=== PATIENT | male | born 1945 | race Caucasian/White ===

== ENCOUNTER 2016-08-26 09:46 | Emergency (ER) | payer MEDICARE, OTHER ==
[2016-08-26] MEDS ORDERED: Zofran 4 MG/2 ML VIAL IV ONE (10:03)
[2016-08-26] MEDS ORDERED: DILAUDID 1 MG/ML INJECTION IV ONE (10:03)
[2016-08-26] MEDS ORDERED: Pepcid 20 MG VIAL IV ONE ×2 (10:03→10:19)
--- NOTE | 2016-08-26 10:06 | ERPHSYRPT ---
- History of Present Illness Time Seen by Provider: 08/26/16 09:54 Historian: patient, family Patient Subjective Stated Complaint: PT REPORTS SEVERE ABD PAIN RIGHT LOWER QUAD RADIATING TO GROIN BEGINNING 2 DAYS AGO-STATES PAIN GOT BETTER YESTERDAY ET THEN BECAME SEVERE AGAIN YVETTE 0400 THIS AM-REPORTS NAUSEA DENIES V/D-DENIES FEVER-DENIES DIFFICUTLY WITH URINATION-LAST BM 2 DAYS AGO Triage Nursing Assessment: PT PALE WARM ET DRY-A & O-ABD TENDER TO PALP-DENIES REBOUND TENDERNESS-BOWEL SOUNDS PRESENT-RESP NONLABORED Physician History: CC: abd pain hX: 70 y/o patient of Dr Mendez with 2-3 day hx of abd pain. It is rather severe and radiates to the groin. He saw the [facility] and was given ultram without relief. Plain xray neg. He is scheduled for CT later today. No fever or chills. Normal BM and normal urination. No chest pain. He had prior EGD recently which showed duodenitis. He had prior colonoscopy which was ok. Pain is in right abd and rather severe. Allergies/Adverse Reactions: iodine Allergy (Severe, Verified 08/26/16 10:17) "ALMOST KILLED ME" codeine Allergy (Mild, Verified 08/26/16 09:55) tetanus toxoid, adsorbed Allergy (Mild, Verified 08/26/16 09:55) Home Medications: Zolpidem Tartrate [Ambien] 1 tab PO HS 08/07/13 [History] Clopidogrel Bisulfate 75 mg [PLAVIX 75 MG Tablet] 75 mg PO HS 06/16/16 [ History] Omeprazole 20 MG [Prilosec 20 mg] 40 mg PO HS 06/16/16 [History] Tramadol HCl/Acetaminophen [Ultracet Tablet] 1 each PO Q6-8HPRN PRN 06/16/16 [ History] Hx Tetanus, Diphtheria Vaccination/Date Given: No Hx Influenza Vaccination/Date Given: Yes Hx Pneumococcal Vaccination/Date Given: Yes Immunizations Up to Date: Yes - Review of Systems Constitutional: Malaise, Weakness, No Fever, No Chills Eyes: No Symptoms Ears, Nose, & Throat: No Symptoms Respiratory: No Cough, No Dyspnea Cardiac: No Chest Pain Abdominal/Gastrointestinal: Abdominal Pain, Nausea, Vomiting (1st night), No Diarrhea, No Constipation Genitourinary Symptoms: No Dysuria, No Hematuria, No Flank Pain Skin: No Rash Neurological: No Headache All Other Systems: Reviewed and Negative - Past Medical History Pertinent Past Medical History: Yes Neurological History: No Pertinent History ENT History: No Pertinent History Cardiac History: Coronary Artery Disease (s/p stenting), Hypertension Respiratory History: COPD, Pneumonia Endocrine Medical History: No Pertinent History Musculoskeletal History: No Pertinent History GI Medical History: GERD History: No Pertinent History Psycho-Social History: No Pertinent History Male Reproductive Disorders: Prostate Problems - Past Surgical History Past Surgical History: Yes Neuro Surgical History: No Pertinent History Cardiac: Cardiac Stent Respiratory: No Pertinent History Gastrointestinal: Appendectomy Musculoskeletal: Orthopedic Surgery Other Surgical History: l shoulder - tonsils .jeanie ankles. - Social History Smoking Status: Never smoker Exposure to second hand smoke: No Drug Use: none Patient Lives Alone: No - Nursing Vital Signs Nursing Vital Signs: Initial Vital Signs Temperature 98.2 F Temperature Source Oral Pulse Rate 64 Respiratory Rate 20 Blood Pressure [] 163/88 Pain Intensity 4 - Physical Exam General Appearance: alert Eye Exam: PERRL/EOMI Ears, Nose, Throat Exam: normal ENT inspection, moist mucous membranes Neck Exam: normal inspection, non-tender, supple Respiratory Exam: normal breath sounds, lungs clear Cardiovascular Exam: regular rate/rhythm Gastrointestinal/Abdomen Exam: soft, tenderness (RLQ tender with some guarding) , No mass, No guarding Male Genitalia Exam: normal genitalia, No hernia, No testicular tenderness Back Exam: normal inspection Extremity Exam: normal inspection, normal range of motion Neurologic Exam: alert, oriented x 3, cooperative, sensation nml, No motor deficits Skin Exam: warm, dry, No rash SpO2 Interpretation: normal SpO2: 99 Oxygen Delivery: Room Air - Course Nursing assessment & vital signs reviewed: Yes EKG Interpreted by Me: RATE (61), Sinus Rhythm, NORMAL AXIS, NORMAL INTERVALS ( QTc 421), NORMAL QRS, NORMAL ST-T - CT Exams abd/pelvis CT Interpretation: Tele-radiologist Report (urine bladder micro calculi with right hydronephrosis, enlarged prostate) Ordered Tests: Active Orders 24 hr Category Date Time Status Clean Catch Urine Specimen STAT Care 08/26/16 10:03 Active EKG-ER Only STAT Care 08/26/16 10:03 Active IV Insertion STAT Care 08/26/16 10:03 Active NPO (ED) STAT Care 08/26/16 10:03 Active ABDOMEN AND PELVIS W/0 CONTRAS [CT] Stat Exams 08/26/16 10:06 Completed CBC W DIFF Stat Lab 08/26/16 10:00 Completed CMP Stat Lab 08/26/16 10:00 Completed LIPASE Stat Lab 08/26/16 10:00 Completed Lactic Acid Urgent Lab 08/26/16 10:15 Completed UA W/ MICROSCOPIC Stat Lab 08/26/16 10:50 Completed Medication Summary Generic Name Dose Route Start Last Admin Trade Name Freq PRN Reason Stop Dose Admin Sodium Chloride 1,000 mls @ 100 mls/hr 08/26/16 10:15 08/26/16 10:29 Sodium Chloride 0.9% 1000 Ml IV 09/25/16 10:14 100 mls/hr .Q10H JUAN Administration Discontinued Medications Generic Name Dose Route Start Last Admin Trade Name Freq PRN Reason Stop Dose Admin Famotidine 20 mg 08/26/16 10:03 08/26/16 10:29 Pepcid 20 Mg Vial IV 08/26/16 10:04 20 mg STAT ONE Administration Famotidine Confirm 08/26/16 10:19 Pepcid 20 Mg Vial Administered 08/26/16 10:20 Dose 20 mg IV .STK-MED ONE Hydromorphone HCl 0.5 mg 08/26/16 10:03 08/26/16 10:30 Dilaudid 1 Mg/Ml Injection IV 08/26/16 10:04 0.5 mg STAT ONE Administration Hydromorphone HCl Confirm 08/26/16 10:19 Dilaudid 1 Mg/Ml Injection Administered 08/26/16 10:20 Dose 1 mg .ROUTE .STK-MED ONE Sodium Chloride Confirm 08/26/16 10:19 Sodium Chloride 0.9% 1000 Ml Administered 08/26/16 10:20 Dose 1,000 mls @ ud .ROUTE .STK-MED ONE Ondansetron HCl 4 mg 08/26/16 10:03 08/26/16 10:29 Zofran 4 Mg/2 Ml Vial IV 08/26/16 10:04 4 mg STAT ONE Administration Ondansetron HCl Confirm 08/26/16 10:19 Zofran 4 Mg/2 Ml Vial Administered 08/26/16 10:20 Dose 4 mg .ROUTE .STK-MED ONE Lab/Rad Data: Laboratory Result Diagrams 08/26/16 10:00 08/26/16 10:00 Laboratory Results 08/26/16 08/26/16 08/26/16 Range/Units 10:50 10:15 10:00 WBC (4.0-10.5) K/mm3 RBC (4.1-5.6) M/mm3 Hgb (12.5-18.0) gm/dl Hct (42-50) % MCV (78-100) fl MCH (26-32) pg MCHC (32-36) g/dl RDW (11.5-14.0) % Plt Count (150-450) K/mm3 MPV (6-9.5) fl Gran % (36.0-66.0) % Lymphocytes % (24.0-44.0) % Monocytes % (0.0-12.0) % Eosinophils % (0.00-5.0) % Basophils % (0.0-0.4) % Basophils # (0-0.4) Sodium 142 (136-145) mEq/L Potassium 3.6 (3.5-5.1) mEq/L Chloride 102 (98-107) mEq/L Carbon Dioxide 26.5 (21-32) mEq/L Anion Gap 16.6 H (5-15) MEQ/L BUN 16 (9-20) mg/dL Creatinine 1.47 H (0.55-1.30) mg/dl Estimated GFR 50 ML/MIN Glucose 110 (70-110) MG/DL Lactic Acid 1.8 (0.4-2.0) Calcium 9.6 (8.5-10.1) mg/dL Total Bilirubin 1.3 H (0.2-1.0) mg/dL AST 17 (15-37) U/L ALT 13 (12-78) U/L Alkaline Phosphatase 103 (46-116) U/L Serum Total Protein 8.2 (6.4-8.2) gm/dL Albumin 4.2 (3.4-5.0) g/dL Lipase 102 (73-393) U/L Ur Collection Type VOID Urine Color YELLOW (YELLOW) Urine Appearance CLEAR (CLEAR) Urine pH 6.5 (5-6) Ur Specific [place] 1.015 (1.005-1.025) Urine Protein 30 (Negative) Urine Glucose (UA) NEGATIVE (NEGATIVE) mg/dL Urine Ketones >=160 (NEGATIVE) Urine Nitrite NEGATIVE (NEGATIVE) Urine Bilirubin NEGATIVE (NEGATIVE) Urine Urobilinogen 0.2 (0-1) mg/dL Urine WBC (Auto) NEGATIVE (NEGATIVE) Urine RBC (Auto) LARGE (0-5) Jaron/ul Urine Microscopic RBC 5-10 (0-2) /HPF Urine Microscopic WBC 0-2 (0-5) /HPF Ur Epithelial Cells FEW (FEW) /HPF Urine Bacteria FEW (NEGATIVE) /HPF Urine Mucus SLIGHT (NEGATIVE) /HPF Specimen Received 08/26/16 1050 08/26/16 Range/Units 10:00 WBC 9.9 (4.0-10.5) K/mm3 RBC 5.22 (4.1-5.6) M/mm3 Hgb 15.2 (12.5-18.0) gm/dl Hct 45.6 (42-50) % MCV 87.4 (78-100) fl MCH 29.1 (26-32) pg MCHC 33.3 (32-36) g/dl RDW 13.3 (11.5-14.0) % Plt Count 251 (150-450) K/mm3 MPV 10.6 H (6-9.5) fl Gran % 76.4 H (36.0-66.0) % Lymphocytes % 16.6 L (24.0-44.0) % Monocytes % 6.7 (0.0-12.0) % Eosinophils % 0.2 (0.00-5.0) % Basophils % 0.1 (0.0-0.4) % Basophils # 0.01 (0-0.4) Sodium (136-145) mEq/L Potassium (3.5-5.1) mEq/L Chloride (98-107) mEq/L Carbon Dioxide (21-32) mEq/L Anion Gap (5-15) MEQ/L BUN (9-20) mg/dL Creatinine (0.55-1.30) mg/dl Estimated GFR ML/MIN Glucose (70-110) MG/DL Lactic Acid (0.4-2.0) Calcium (8.5-10.1) mg/dL Total Bilirubin (0.2-1.0) mg/dL AST (15-37) U/L ALT (12-78) U/L Alkaline Phosphatase (46-116) U/L Serum Total Protein (6.4-8.2) gm/dL Albumin (3.4-5.0) g/dL Lipase (73-393) U/L Ur Collection Type Urine Color (YELLOW) Urine Appearance (CLEAR) Urine pH (5-6) Ur Specific [place] (1.005-1.025) Urine Protein (Negative) Urine Glucose (UA) (NEGATIVE) mg/dL Urine Ketones (NEGATIVE) Urine Nitrite (NEGATIVE) Urine Bilirubin (NEGATIVE) Urine Urobilinogen (0-1) mg/dL Urine WBC (Auto) (NEGATIVE) Urine RBC (Auto) (0-5) Jaron/ul Urine Microscopic RBC (0-2) /HPF Urine Microscopic WBC (0-5) /HPF Ur Epithelial Cells (FEW) /HPF Urine Bacteria (NEGATIVE) /HPF Urine Mucus (NEGATIVE) /HPF Specimen Received - Progress Progress Note: 08/26/16 11:[address] appears to show renal colic signs. Will release with instr. Counseled pt/family regarding: lab results, diagnosis, need for follow-up, rad results - Departure Time of Disposition: 11:26 Departure Disposition: Home Clinical Impression: Renal colic on right side Condition: Stable Critical Care Time: No Referrals: MALLY MENDEZ [Primary Care Provider] - Instructions: Abdominal Pain-Adult, Kidney Stones Additional Instructions: Return for fever, recurrent vomiting, or uncontrolled pain. See Dr Mendez at 1:30 Monday. No driving today or while taking norco. Prescriptions: Hydrocodone Bit/Acetaminophen [[place] 5-325 Tablet] 1 each PO Q6H PRN PRN #20 tablet PRN Reason: Pain Ondansetron [Zofran Odt] 4 mg PO Q6HPRN PRN #10 tab.rapdis PRN Reason: Nausea/Vomiting
[2016-08-26] MEDS ORDERED: Sodium Chloride 0.9% 1000 ML 1,000 ML IV SCH (10:15)
[2016-08-26] MEDS ORDERED: DILAUDID 1 MG/ML INJECTION ONE (10:19)
[2016-08-26] MEDS ORDERED: Zofran 4 MG/2 ML VIAL ONE (10:19)
[2016-08-26] MEDS ORDERED: Sodium Chloride 0.9% 1000 ML 1,000 ML ONE (10:19)
[2016-08-26 10:20] LABS: BASOPHIL % 0.1 % (0.0-0.4); Eosinophil % 0.2 % (0.00-5.0); Granulocytes % 76.4 % (36.0-66.0); Lymphocytes % 16.6 % (24.0-44.0); Mean Cell Volume 87.4 fl (78-100); Mean Corpuscular Hemoglobin 29.1 pg (26-32); Mean Platelet Volume 10.6 fl (6-9.5); Monocytes % 6.7 % (0.0-12.0); Platelet Count 251 K/mm3 (150-450); Red Blood Count 5.22 M/mm3 (4.1-5.6); Red Cell Distribution Width 13.3 % (11.5-14.0); White Blood Count 9.9 K/mm3 (4.0-10.5)
[2016-08-26 10:55] LABS: ALBUMIN 4.2 g/dL (3.4-5.0); ANION GAP 16.6 MEQ/L (5-15); BILIRUBIN,TOTAL 1.3 mg/dL (0.2-1.0); Carbon Dioxide 26.5 mEq/L (21-32); Potassium 3.6 mEq/L (3.5-5.1); Total Protein 8.2 gm/dL (6.4-8.2)
--- NOTE | 2016-08-26 11:12 | XRAY ---
Indication: Lower abdominal pain radiating into testicles. Multiple contiguous axial images obtained through the abdomen and pelvis without contrast as ordered. Comparison: November 12, 2005 Lung bases are clear. Heart is not enlarged. Noncontrasted stomach and bowel loops appear nonobstructed. Previous reported appendectomy. No free fluid/air. Again enlarged prostate gland impresses on the base of the bladder. There are now 2 tiny urinary bladder calculi, larger measuring 3 mm. There is also mild right-sided hydronephrosis with minimal right ureteral dilatation suggestive of recent obstructive uropathy. Remaining liver, gallbladder, pancreas, spleen, adrenal glands, left kidney, and left ureter are unremarkable for noncontrast exam. There remains mild aortoiliac calcifications without AAA. Osseous structures intact again with mild multilevel degenerative spondylosis. Impression: 1. 2 new urinary bladder micro-calculi. Mild right sided hydronephrosis and minimal hydroureter suggestive of recent passage of calculus. 2. Stable enlarged prostate gland. CT DI 24.77
[2016-08-26 11:24] LABS: Collection Type VOID
[2016-08-26 11:25] LABS: Bacteria FEW /HPF (NEGATIVE); COMPLETE URINE MICROSCOPIC? YES; Epithelial Cells FEW /HPF (FEW); Mucus SLIGHT /HPF (NEGATIVE); Ph 6.5 (5-6); WBC 0-2 /HPF (0-5)
[2016-08-26 11:46] VITALS: BP 162/85; PULSE 62; O2SAT 97
== END 2016-08-26 11:45 | disposition home or self-care (01) ==
LOC: ED 09:46
DX: N23 Unspecified renal colic (principal); R10.31 Right lower quadrant pain; R11.2 Nausea with vomiting, unspecified; R53.1 Weakness; I25.10 Atherosclerotic heart disease of native coronary artery without angina pectoris; Z98.61 Coronary angioplasty status; I10 Essential (primary) hypertension
CPT/HCPCS: 36000; 36415; 74176; 80053; 81000; 83605; 83690; 85025; 93005; 96360; 96374; 96375; 99283; J1170; J2405

== ENCOUNTER 2017-09-19 14:20 | Observation (INO) | payer MEDICARE, OTHER ==
[2017-09-19] MEDS ORDERED: MORPHINE SULFATE 2 MG INJ ONE (14:44)
[2017-09-19] MEDS: Zofran 4 MG/2 ML VIAL IV PRN ×2 (14:45→23:15)
[2017-09-19] MEDS ORDERED: Zofran 4 MG/2 ML VIAL ONE (14:47)
[2017-09-19] MEDS ORDERED: MORPHINE SULFATE 2 MG INJ IV PRN (14:50)
[2017-09-19 15:10] LABS: BASOPHIL % 0.1 % (0.0-0.4); Basophil (Absolute #) 0.02 (0-0.4); Eosinophil % 0.4 % (0.00-5.0); Eosinophil (Absolute #) 0.05 (0-0.5); Granulocyte Absolute (ANC) 11.78 (1.4-6.9); Granulocytes % 83.5 % (36.0-66.0); Hematocrit 43.6 % (42-50); Hemoglobin 14.3 gm/dl (12.5-18.0); Lymphocyte (Absolute #) 1.48 (1.0-4.6); Lymphocytes % 10.5 % (24.0-44.0); Mean Cell Volume 88.6 fl (78-100); Mean Corpuscular Hemoglobin 29.1 pg (26-32); Mean Corpuscular Hgb Concent. 32.8 g/dl (32-36); Mean Platelet Volume 10.3 fl (6-9.5); Monocyte (Absolute #) 0.78 (0.0-1.3); Monocytes % 5.5 % (0.0-12.0); Platelet Count 244 K/mm3 (150-450); Red Blood Count 4.92 M/mm3 (4.1-5.6); Red Cell Distribution Width 12.9 % (11.5-14.0); White Blood Count 14.1 K/mm3 (4.0-10.5)
[2017-09-19 15:33] LABS: ALBUMIN 4.1 g/dL (3.4-5.0); ANION GAP 9.4 MEQ/L (5-15); BILIRUBIN,TOTAL 0.7 mg/dL (0.2-1.0); Calcium 9.4 mg/dL (8.5-10.1); Carbon Dioxide 28.7 mEq/L (21-32); Creatinine 1 1.41 mg/dl (0.55-1.30); Potassium 4.4 mEq/L (3.5-5.1); Total Protein 7.8 gm/dL (6.4-8.2)
[2017-09-19] MEDS: D5W/0.45NS W/ 20mEq KCl 1000 ML 1,000 ML IV SCH ×2 (15:46→23:07)
--- NOTE | 2017-09-19 16:22 | XRAY ---
Indication: Groin pain. Dysuria. History stones. Multiple contiguous axial images obtained through the abdomen and pelvis without contrast as ordered. Comparison: August 26, 2016. Lung bases demonstrates minimal right base dependent atelectasis. Remaining lung bases clear. Heart is not enlarged. New 3-4 mm right UVJ ureteral calculus. The more proximal right ureter is mildly distended up to 5-6 mm with stranding with mild hydronephrosis. Moderate perinephric stranding with small fluid suggests pyelosinus reflux. Findings consistent with high-grade obstructive uropathy. Stable enlarged prostate gland again impresses on the base of the urinary bladder. Noncontrasted stomach and bowel loops appear nonobstructed. Previous reported appendectomy. Again a few calcified splenic granulomas. Remaining liver, gallbladder, pancreas, spleen, adrenal glands, left kidney, left ureter, and bladder appear unremarkable for noncontrast exam. Stable mild aortoiliac calcifications without AAA. Osseous structures intact again with mild multilevel degenerative spondylosis. Stable small fatty right inguinal hernia. Impression: 1. New 3-4 mm right UVJ calculus producing high-grade obstructive uropathy as detailed. 2. Stable enlarged prostate gland and small fatty right inguinal hernia. CTDI 21.97
[2017-09-19 16:49] LABS: Appearance CLEAR (CLEAR); Glucose NEGATIVE (NEGATIVE); Leukocyte Esterase NEGATIVE (NEGATIVE); Nitrite NEGATIVE (NEGATIVE); Protein,Urine Dip TRACE (Negative); Specific Gravity 1.015 (1.005-1.025)
[2017-09-19 16:50] LABS: Bacteria RARE /HPF (NEGATIVE); Bilirubin NEGATIVE (NEGATIVE); Blood 50 Ery/ul (0-5); Epithelial Cells RARE /HPF (FEW); Ketones MODERATE (NEGATIVE); Urobilinogen NORMAL mg/dL (0-1)
[2017-09-19] MEDS: Coreg 3.125 MG PO SCH (17:09)
[2017-09-19] MEDS ORDERED: Coreg 3.125 MG ONE (17:14)
[2017-09-19] MEDS: MORPHINE SULFATE 4 MG INJ IV PRN ×2 (17:19→23:15)
[2017-09-19] MEDS ORDERED: PLAVIX 75 MG Tablet PO SCH (22:00)
[2017-09-19] MEDS ORDERED: Ambien 10 MG PO SCH (22:00)
[2017-09-20 07:12] VITALS: BP 132/77; PULSE 58; O2SAT 98
[2017-09-20] MEDS: D5W/0.45NS W/ 20mEq KCl 1000 ML 1,000 ML IV SCH (08:04)
[2017-09-20] MEDS: Coreg 3.125 MG PO SCH (09:31)
--- NOTE | 2017-09-20 09:37 | PCM.DCORD ---
- Discharge Discharge Date: 09/20/17 Disposition: Home, Self-Care Condition: Stable Prescriptions: New Hydrocodone/APAP 10/325 mg [[place] 10/325 MG Tablet] 1 tab PO Q4H PRN PRN #20 tablet MDD 6 PRN Reason: Pain Continue Zolpidem Tartrate [Ambien] 1 tab PO HS Clopidogrel Bisulfate 75 mg [PLAVIX 75 MG Tablet] 75 mg PO HS Carvedilol 3.125 mg PO BID PANTOPRAZOLE 40 mg Tablet [Protonix 40MG Tablet] 40 mg PO QAM Follow up with: MALLY HOOK [Primary Care Provider] - 1 Week
[2017-09-20] MEDS ORDERED: Protonix 40MG Tablet PO SCH (10:00)
--- NOTE | 2017-09-22 08:36 | SSS ---
DISCHARGE DIAGNOSES: 1) NEPHROLITHIASIS. 2) HYDRONEPHROSIS. 3) VOMITING. HISTORY OF PRESENT ILLNESS: The patient is a 71 year-old white male patient presented to my office with complaints of left lower quadrant abdominal pain. He reports he previously had kidney stones 40 years ago and three or four years ago, this is a similar type of pain as he had previously. He was seen in the office and admitted to the hospital for IV fluid hydration and pain control and further evaluation. PAST MEDICAL/SURGICAL HISTORY: Otherwise significant for hypertension, coronary artery disease and gastroesophageal reflux disease. HOME MEDICATIONS: Includes carvedilol 3.125 mg b.i.d., Plavix 75 mg daily, pantoprazole 40 mg daily and 10 mg at night for sleep. ALLERGIES: IODINE, CODEINE, TETANUS. PHYSICAL EXAMINATION: Revealed a well-nourished, well-developed 71 year-old white male in moderate distress due to his pelvic pain at the time of my initial evaluation. VITAL SIGNS: On admission showed temperature 98.1F, pulse 53, respiratory rate 20, blood pressure was noted to be 223/98. O2 saturations 99% on room air. HEENT: Normocephalic, atraumatic. Pupils equal round reactive to light. Extraocular movements intact. Oropharynx is somewhat dry. NECK: Supple without lymphadenopathy, thyromegaly or JVD. CHEST: Clear to auscultation with good air movement bilaterally. HEART: Regular rate and rhythm without murmurs, rubs or gallops. ABDOMEN: Soft, mildly tender in the suprapubic area. There was minimal CVA tenderness to percussion. No palpable masses were felt. EXTREMITIES: Without clubbing, cyanosis or edema. NEUROLOGIC: The patient is alert and oriented x3. LAB DATA AND TESTS: Showed glucose nonfasting 119, BUN 16, creatinine 1.41. Electrolytes and liver enzymes were normal. UA showed 5-10 red blood cells per high field. Specific gravity 1.015 and was otherwise normal. His white blood cell count was 14.100. His hemoglobin was 14.3, PLT count 224,000. CT scan showed new 3 to 4 mm right UVJ calculus with producing high grade obstructive uropathy. HOSPITAL COURSE: The patient is admitted to the [facility], given IV morphine and IV fluids. His blood pressure came down nicely after his pain was resolved. Overnight the patient reports the pain has mostly resolved. He is able to drink fluids and seems comfortable presently in bed. He is felt to be ready for discharge home at this time. He is discharged home with [place] 10/325 mg every four hours PRN for pain and continue his home medications. He is to push fluid and return to my office in one week for follow up.
== END 2017-09-20 11:00 | disposition home or self-care (01) ==
LOC: MED SURG 14:20
PROVIDERS: ADMIT Family Medicine; ATTEND Family Medicine
DX: N20.0 Calculus of kidney (principal); N13.30 Unspecified hydronephrosis; R11.10 Vomiting, unspecified; I10 Essential (primary) hypertension; I25.10 Atherosclerotic heart disease of native coronary artery without angina pectoris; K21.9 Gastro-esophageal reflux disease without esophagitis; G47.9 Sleep disorder, unspecified; Z79.899 Other long term (current) drug therapy
CPT/HCPCS: 36415; 74176; 80053; 81000; 85025; 87086; G0378; J2270; J2405; A9270-GY

== ENCOUNTER 2017-09-20 20:45 | Observation (INO) | payer MEDICARE, OTHER ==
[2017-09-20] MEDS ORDERED: BENADRYL 50 MG/ML IV ONE (21:24)
--- NOTE | 2017-09-20 21:26 | ERPHSYRPT ---
- History of Present Illness Time Seen by Provider: 09/20/17 21:15 Source: patient Exam Limitations: no limitations Patient Subjective Stated Complaint: Right sided abdominal pain Triage Nursing Assessment: Pt presents to the ED with complaints of right flank pain with radiation into right side of abdomin. Pt states he was discharged from [facility] today for same complaint. Pt states worsening pain today, and dizziness after taking norco. Pt states no new complaints at this time. No distress noted, skin PWD. Physician History: YESTERDAY PT STARTED WITH RIGHT FLANK PAIN RADIATING TO THE ABDOMINAL RLQ WITH VOMITING X4. PT WAS ADMITTED TO [facility] WHERE A CT ABDOMEN/PELVIS REVEALED A NEW 3- 4MM RIGHT UVJ CALCULUS PRODUCING HIGH GRADE OBSTRUCTIVE UROPATHY. PT WAS DISCHARGED TODAY AND TOOK HIS SECOND NORCO ABOUT 105 MINUTES AGO AFTER WHICH HE FELT FLUSHED AND VOMITED X1 WITH RETURN OF HIS RIGHT SIDED PAIN. PT DENIES CHEST PAIN, SHORTNESS OF AIR, TIGHTNESS IN THE NECK, FEVER. PT HAD HIS FIRST KIDNEY STONE 40 YEARS AGO AND AGAIN ABOUT 3 YEARS AGO. Allergies/Adverse Reactions: iodine Allergy (Severe, Verified 08/26/16 10:17) "ALMOST KILLED ME" codeine Allergy (Mild, Verified 08/26/16 09:55) tetanus toxoid, adsorbed Allergy (Mild, Verified 08/26/16 09:55) Home Medications: Zolpidem Tartrate [Ambien] 1 tab PO HS 08/07/13 [History] Clopidogrel Bisulfate 75 mg [PLAVIX 75 MG Tablet] 75 mg PO HS 06/16/16 [ History] Carvedilol 3.125 mg PO BID 09/19/17 [History] PANTOPRAZOLE 40 mg Tablet [Protonix 40MG Tablet] 40 mg PO QAM 09/19/17 [ History] Hx Tetanus, Diphtheria Vaccination/Date Given: No Hx Influenza Vaccination/Date Given: Yes Hx Pneumococcal Vaccination/Date Given: Yes Immunizations Up to Date: Yes - Review of Systems Constitutional: No Fever Ears, Nose, & Throat: No Throat Swelling Respiratory: No Dyspnea Cardiac: No Chest Pain Abdominal/Gastrointestinal: Abdominal Pain, Vomiting, Other (RIGHT FLANK PAIN) Neurological: No Headache All Other Systems: Reviewed and Negative - Past Medical History Pertinent Past Medical History: Yes Neurological History: No Pertinent History ENT History: No Pertinent History Cardiac History: Coronary Artery Disease, Hypertension Respiratory History: COPD, Pneumonia Endocrine Medical History: No Pertinent History Musculoskeletal History: No Pertinent History GI Medical History: GERD History: No Pertinent History Psycho-Social History: No Pertinent History Male Reproductive Disorders: Prostate Problems - Past Surgical History Past Surgical History: Yes Neuro Surgical History: No Pertinent History Cardiac: Cardiac Stent Respiratory: No Pertinent History Gastrointestinal: Appendectomy Musculoskeletal: Orthopedic Surgery Other Surgical History: l shoulder - tonsils .jeanie ankles. - Social History Smoking Status: Former smoker Exposure to second hand smoke: No Drug Use: none Patient Lives Alone: No - Nursing Vital Signs Nursing Vital Signs: Initial Vital Signs Temperature 98.2 F 09/20/17 21:15 Pulse Rate 68 09/20/17 21:15 Respiratory Rate 18 09/20/17 21:15 Blood Pressure 198/107 09/20/17 21:15 O2 Sat by Pulse Oximetry 100 09/20/17 21:15 Pain Scale Pain Intensity 7 - Physical Exam General Appearance: alert, anxiety Eye Exam: PERRL/EOMI Ears, Nose, Throat Exam: TMs normal, pharynx normal, moist mucous membranes Neck Exam: normal inspection Respiratory Exam: lungs clear Cardiovascular Exam: normal heart sounds Gastrointestinal/Abdomen Exam: soft, normal bowel sounds, tenderness (MILD RLQ ABDOMINAL TENDERNESS), No guarding Back Exam: normal range of motion Extremity Exam: normal inspection, No pedal edema Neurologic Exam: alert, cooperative Skin Exam: warm, dry SpO2 Interpretation: normal SpO2: 100 Oxygen Delivery: Room Air - Course Nursing assessment & vital signs reviewed: Yes Ordered Tests: Active Orders 24 hr Category Date Time Status IV Insertion STAT Care 09/20/17 21:24 Active AMYLASE Stat Lab 09/20/17 21:42 Completed CBC W DIFF Stat Lab 09/20/17 21:42 Completed CMP Stat Lab 09/20/17 21:42 Completed LIPASE Stat Lab 09/20/17 21:42 Completed MAG [MAGNESIUM] Stat Lab 09/20/17 21:42 Completed UA W/ MICROSCOPIC Stat Lab 09/20/17 21:42 Completed Medication Summary Generic Name Dose Route Start Last Admin Trade Name Freq PRN Reason Stop Dose Admin Sodium Chloride 1,000 mls @ 100 mls/hr 09/20/17 21:30 09/20/17 21:34 Sodium Chloride 0.9% 1000 Ml IV 10/20/17 21:29 100 mls/hr .Q10H JUAN Administration Magnesium Sulfate/Dextrose 100 mls @ 200 mls/hr 09/20/17 22:24 09/20/17 22:29 Magnesium 1 Gm / 100 Ml D5w IV 09/20/17 22:53 200 mls/hr STAT ONE Administration Discontinued Medications Generic Name Dose Route Start Last Admin Trade Name Tia PRN Reason Stop Dose Admin Diphenhydramine HCl 25 mg 09/20/17 21:24 09/20/17 21:33 Benadryl 50 Mg/Ml IV 09/20/17 21:25 25 mg STAT ONE Administration Diphenhydramine HCl Confirm 09/20/17 21:27 Benadryl 50 Mg/Ml Administered 09/20/17 21:28 Dose 50 mg .ROUTE .STK-MED ONE Magnesium Sulfate/Dextrose Confirm 09/20/17 22:28 Magnesium 1 Gm / 100 Ml D5w Administered 09/20/17 22:29 Dose 100 mls @ ud IV .STK-MED ONE Lab/Rad Data: Laboratory Result Diagrams 09/20/17 21:42 09/20/17 21:42 Laboratory Results 09/20/17 09/20/17 09/20/17 Range/Units 21:42 21:42 21:42 WBC 12.4 H (4.0-10.5) K/mm3 RBC 4.81 (4.1-5.6) M/mm3 Hgb 14.0 (12.5-18.0) gm/dl Hct 42.8 (42-50) % MCV 89.0 (78-100) fl MCH 29.1 (26-32) pg MCHC 32.7 (32-36) g/dl RDW 12.9 (11.5-14.0) % Plt Count 232 (150-450) K/mm3 MPV 10.3 H (6-9.5) fl Gran % 77.7 H (36.0-66.0) % Lymphocytes % 13.2 L (24.0-44.0) % Monocytes % 7.6 (0.0-12.0) % Eosinophils % 1.3 (0.00-5.0) % Basophils % 0.2 (0.0-0.4) % Basophils # 0.02 (0-0.4) Sodium 138 (136-145) mEq/L Potassium 3.7 (3.5-5.1) mEq/L Chloride 103 (98-107) mEq/L Carbon Dioxide 24.4 (21-32) mEq/L Anion Gap 14.3 (5-15) MEQ/L BUN 15 (9-20) mg/dL Creatinine 1.74 H (0.55-1.30) mg/dl Estimated GFR 41 ML/MIN Glucose 96 (70-110) MG/DL Calcium 9.2 (8.5-10.1) mg/dL Magnesium 1.5 L (1.8-2.4) mg/dL Total Bilirubin 1.00 (0.2-1.0) mg/dL AST 18 (15-37) U/L ALT 14 (12-78) U/L Alkaline Phosphatase 93 (46-116) U/L Serum Total Protein 7.5 (6.4-8.2) gm/dL Albumin 4.0 (3.4-5.0) g/dL Amylase 56 (25-115) U/L Lipase 101 (73-393) U/L Ur Collection Type Urine Color (YELLOW) Urine Appearance (CLEAR) Urine pH (5-6) Ur Specific [place] (1.005-1.025) Urine Protein (Negative) Urine Ketones (NEGATIVE) Urine Blood (0-5) Jaron/ul Urine Nitrite (NEGATIVE) Urine Bilirubin (NEGATIVE) Urine Urobilinogen (0-1) mg/dL Ur Leukocyte Esterase (NEGATIVE) Urine Microscopic RBC (0-2) /HPF Urine Microscopic WBC (0-5) /HPF Ur Epithelial Cells (FEW) /HPF Urine Bacteria (NEGATIVE) /HPF Urine Mucus (NEGATIVE) /HPF Urine Culture Reflexed (NO) Urine Glucose (NEGATIVE) mg/dL Specimen Received 09/20/17 Range/Units 21:42 WBC (4.0-10.5) K/mm3 RBC (4.1-5.6) M/mm3 Hgb (12.5-18.0) gm/dl Hct (42-50) % MCV (78-100) fl MCH (26-32) pg MCHC (32-36) g/dl RDW (11.5-14.0) % Plt Count (150-450) K/mm3 MPV (6-9.5) fl Gran % (36.0-66.0) % Lymphocytes % (24.0-44.0) % Monocytes % (0.0-12.0) % Eosinophils % (0.00-5.0) % Basophils % (0.0-0.4) % Basophils # (0-0.4) Sodium (136-145) mEq/L Potassium (3.5-5.1) mEq/L Chloride (98-107) mEq/L Carbon Dioxide (21-32) mEq/L Anion Gap (5-15) MEQ/L BUN (9-20) mg/dL Creatinine (0.55-1.30) mg/dl Estimated GFR ML/MIN Glucose (70-110) MG/DL Calcium (8.5-10.1) mg/dL Magnesium (1.8-2.4) mg/dL Total Bilirubin (0.2-1.0) mg/dL AST (15-37) U/L ALT (12-78) U/L Alkaline Phosphatase (46-116) U/L Serum Total Protein (6.4-8.2) gm/dL Albumin (3.4-5.0) g/dL Amylase (25-115) U/L Lipase (73-393) U/L Ur Collection Type VOID Urine Color YELLOW (YELLOW) Urine Appearance CLEAR (CLEAR) Urine pH 5.0 (5-6) Ur Specific [place] 1.020 (1.005-1.025) Urine Protein NEGATIVE (Negative) Urine Ketones MODERATE (NEGATIVE) Urine Blood 50 (0-5) Jaron/ul Urine Nitrite NEGATIVE (NEGATIVE) Urine Bilirubin NEGATIVE (NEGATIVE) Urine Urobilinogen NORMAL (0-1) mg/dL Ur Leukocyte Esterase NEGATIVE (NEGATIVE) Urine Microscopic RBC 2-5 (0-2) /HPF Urine Microscopic WBC 0-2 (0-5) /HPF Ur Epithelial Cells RARE (FEW) /HPF Urine Bacteria RARE (NEGATIVE) /HPF Urine Mucus SLIGHT (NEGATIVE) /HPF Urine Culture Reflexed NO (NO) Urine Glucose NEGATIVE (NEGATIVE) mg/dL Specimen Received 09/20/175 - Progress Discussed with DrFlaco: Susanna (OBS - [id number]) - Departure Time of Disposition: 22:50 Departure Disposition: Observation Clinical Impression: RIGHT RENAL COLIC, ALLERGIC REACTION TO NORCO, HYPOMAGNESEMIA, COPD, HTN, CAD, GERD Condition: Stable Critical Care Time: No Referrals: MALLY HOOK [Primary Care Provider] -
[2017-09-20] MEDS ORDERED: BENADRYL 50 MG/ML ONE (21:27)
[2017-09-20] MEDS ORDERED: Sodium Chloride 0.9% 1000 ML 1,000 ML ONE (21:27)
[2017-09-20] MEDS ORDERED: Sodium Chloride 0.9% 1000 ML 1,000 ML IV SCH ×2 (21:30→23:27)
[2017-09-20 21:46] LABS: BASOPHIL % 0.2 % (0.0-0.4); Basophil (Absolute #) 0.02 (0-0.4); Eosinophil % 1.3 % (0.00-5.0); Eosinophil (Absolute #) 0.16 (0-0.5); Granulocyte Absolute (ANC) 9.62 (1.4-6.9); Granulocytes % 77.7 % (36.0-66.0); Hematocrit 42.8 % (42-50); Lymphocyte (Absolute #) 1.63 (1.0-4.6); Lymphocytes % 13.2 % (24.0-44.0); Mean Corpuscular Hemoglobin 29.1 pg (26-32); Mean Corpuscular Hgb Concent. 32.7 g/dl (32-36); Mean Platelet Volume 10.3 fl (6-9.5); Monocyte (Absolute #) 0.94 (0.0-1.3); Monocytes % 7.6 % (0.0-12.0); Platelet Count 232 K/mm3 (150-450); Red Blood Count 4.81 M/mm3 (4.1-5.6); Red Cell Distribution Width 12.9 % (11.5-14.0); White Blood Count 12.4 K/mm3 (4.0-10.5)
[2017-09-20 22:12] LABS: Appearance CLEAR (CLEAR); Bilirubin NEGATIVE (NEGATIVE); Blood 50 Ery/ul (0-5); Glucose NEGATIVE (NEGATIVE); Ketones MODERATE (NEGATIVE); Leukocyte Esterase NEGATIVE (NEGATIVE); Nitrite NEGATIVE (NEGATIVE); Protein,Urine Dip NEGATIVE (Negative); Urobilinogen NORMAL mg/dL (0-1)
[2017-09-20 22:13] LABS: Bacteria RARE /HPF (NEGATIVE); Epithelial Cells RARE /HPF (FEW); Mucus SLIGHT /HPF (NEGATIVE); WBC 0-2 /HPF (0-5)
[2017-09-20 22:18] LABS: ANION GAP 14.3 MEQ/L (5-15); Calcium 9.2 mg/dL (8.5-10.1); Carbon Dioxide 24.4 mEq/L (21-32); Creatinine 1 1.74 mg/dl (0.55-1.30); Potassium 3.7 mEq/L (3.5-5.1); Total Protein 7.5 gm/dL (6.4-8.2)
[2017-09-20] MEDS ORDERED: Magnesium 1 Gm / 100 Ml D5W*** 100 ML IV ONE ×2 (22:24→22:28)
[2017-09-20] MEDS ORDERED: PERCOCET TABLET 5/325MG PO PRN (23:27)
[2017-09-20] MEDS ORDERED: Zofran 4 MG/2 ML VIAL IV PRN (23:27)
[2017-09-20] MEDS ORDERED: Phenergan 25 MG INJ IV PRN (23:27)
[2017-09-20] MEDS ORDERED: BENADRYL 50 MG/ML IV PRN (23:27)
[2017-09-21] MEDS ORDERED: PLAVIX 75 MG Tablet PO SCH (00:23)
[2017-09-21] MEDS ORDERED: Ambien 10 MG PO SCH (00:30)
[2017-09-21] MEDS: Coreg 3.125 MG PO SCH ×2 (00:40→08:47)
[2017-09-21 06:19] LABS: BASOPHIL % 0.1 % (0.0-0.4); Basophil (Absolute #) 0.01 (0-0.4); Eosinophil % 2.2 % (0.00-5.0); Granulocyte Absolute (ANC) 5.66 (1.4-6.9); Hematocrit 39.9 % (42-50); Hemoglobin 12.8 gm/dl (12.5-18.0); Lymphocyte (Absolute #) 2.24 (1.0-4.6); Lymphocytes % 24.9 % (24.0-44.0); Mean Cell Volume 90.9 fl (78-100); Mean Corpuscular Hemoglobin 29.2 pg (26-32); Mean Corpuscular Hgb Concent. 32.1 g/dl (32-36); Mean Platelet Volume 10.3 fl (6-9.5); Monocyte (Absolute #) 0.88 (0.0-1.3); Monocytes % 9.8 % (0.0-12.0); Platelet Count 210 K/mm3 (150-450); Red Blood Count 4.39 M/mm3 (4.1-5.6); Red Cell Distribution Width 12.9 % (11.5-14.0)
[2017-09-21 06:54] LABS: ALBUMIN 3.2 g/dL (3.4-5.0); ANION GAP 8.4 MEQ/L (5-15); BILIRUBIN,TOTAL 0.8 mg/dL (0.2-1.0); Calcium 8.4 mg/dL (8.5-10.1); Carbon Dioxide 28.5 mEq/L (21-32); Creatinine 1 1.6 mg/dl (0.55-1.30); Potassium 3.9 mEq/L (3.5-5.1); Total Protein 6.4 gm/dL (6.4-8.2)
[2017-09-21 07:28] VITALS: BP 141/60; PULSE 66; O2SAT 96
--- NOTE | 2017-09-21 08:36 | PCM.DCORD ---
- Discharge Discharge Date: 09/21/17 (follow up with urologist ) Disposition: Home, Self-Care Condition: Stable Prescriptions: No Action Zolpidem Tartrate [Ambien] 1 tab PO HS Clopidogrel Bisulfate 75 mg [PLAVIX 75 MG Tablet] 75 mg PO HS Carvedilol 3.125 mg PO BID PANTOPRAZOLE 40 mg Tablet [Protonix 40MG Tablet] 40 mg PO QAM Hydrocodone/APAP 10/325 mg [[place] 10/325 MG Tablet] 1 tab PO Q4H PRN PRN #20 tablet MDD 6 PRN Reason: Pain Follow up with: MALLY HOOK [Primary Care Provider] -
[2017-09-21] MEDS ORDERED: Protonix 40MG Tablet PO SCH (10:00)
--- NOTE | 2017-09-22 08:58 | SSS ---
DISCHARGE DIAGNOSIS: OBSTRUCTIVE UROPATHY. HISTORY OF PRESENT ILLNESS: The patient is a 72 year-old white male patient who had been in the hospital the day before and then diagnosed with high grade obstructive uropathy with stranding. The patient had been treated with IV fluids and morphine. He got to feeling better and was felt to be ready for discharge home. He was released home with a prescription of [place]. The patient reports that he took the [place] and then four hours took another dose after which he had more problems which he related to the medication itself but really sounds more like passing or movement of the stone. The patient was seen in the emergency room after vomiting and pain and admitted back in the hospital again. HOSPITAL COURSE: The patient was placed in the hospital [facility] and placed on IV fluids and pain medications. This morning the patient voiced he had no pain at all since he was admitted to the emergency room last evening. He reports he is passing urine quite nicely. He does have an urologist in [place] which he has an appointment to see this next coming Monday. The patient was felt to be ready for discharge home once again. This time he is instructed not to take [place] to just stick with Tylenol for pain control and pushing fluids. He is to make an appointment to see me in the office in the next week as well and he may return if he has problems with the severe pain once again. LAB DATA AND TESTS: The patient's repeat laboratory studies, metabolic panel showed creatinine 1.60, BUN 15, glucose nonfasting 89. Electrolytes were essentially normal. Liver enzymes were normal. CBC was normal. Amylase and lipase were normal. UA showed 0 to 2 white blood cells and 2 to 5 red blood cells. His white blood cell count was 12,400 which is down from 14,000 on the day before. His magnesium was somewhat low at 1.5. DISCHARGE PLANS: Again the patient was discharged home to follow up with his urologist in [place] and in my office in the next week and to push fluids and stay away from calcium and salt.
== END 2017-09-21 10:35 | disposition home or self-care (01) ==
LOC: ED 20:45 → MED SURG 23:22
PROVIDERS: ADMIT Family Medicine; ATTEND Family Medicine
DX: N13.9 Obstructive and reflux uropathy, unspecified (principal); N20.0 Calculus of kidney
CPT/HCPCS: 36000; 36415; 80053; 81000; 82150; 83690; 83735; 85025; 93268; 96360; 96365; 96374; 99285; G0378; J1200; J3475; A9270-GY

== ENCOUNTER 2024-02-16 06:06 | Day surgery (SDC) | payer MEDICARE, OTHER ==
[2024-02-16 06:42] VITALS: O2SAT 97
[2024-02-16 07:00] LABS: ANION GAP 13.8 MEQ/L (5-15); Calcium 9.8 mg/dL (8.4-10.2); Creatinine 1 1.08 mg/dL (0.66-1.25); EST GLOMERULAR FILTRATION RATE 69.8 ML/MIN; MAGNESIUM 1.7 mg/dL (1.6-2.3)
[2024-02-16 07:08] LABS: Potassium 4.4 mmol/L (3.5-5.1)
[2024-02-16] MEDS ORDERED: DIPRIVAN 200 MG/20 ML IV ONE (07:51)
[2024-02-16] MEDS ORDERED: Mylicon DROPS ONE (07:58)
[2024-02-16] MEDS ORDERED: ROBINUL ONE (08:04)
[2024-02-16 08:48] VITALS: TEMP 97.6
[2024-02-16 08:53] VITALS: BP 127/80; PULSE 63; RESP 18
[2024-02-16] MEDS: Lactated Ringers 1,000 ML IV SCH (09:01)
--- NOTE | 2024-02-17 11:29 | OP ---
SURGERY DATE/TIME: 02/16/2024 0036 - [id number] PREOPERATIVE DIAGNOSIS: Weight loss. POSTOPERATIVE DIAGNOSIS: Normal colon. PROCEDURE: Colonoscopy. SURGEON: Marc Mendez MD ANESTHESIA: Medication given by the anesthesia department. HISTORY: The patient is a 78-year-old white male who presents now with complaints of weight loss of approximately 12 pounds over the past month. The patient was felt the need to have endoscopic evaluation. He was apprised of the risks of the procedure including risk of perforation, phlebitis, untoward reaction to medication, bleeding, and missed lesions. The patient verbalized his understanding and desired to have the procedure performed. DESCRIPTION OF PROCEDURE AND FINDINGS: Patient was given medication by the anesthesia department. He had continuous pulse oximetry, ECG monitoring, and intermittent blood pressure monitoring during the examination. He was placed in the left lateral decubitus position. Digital rectal examination was performed and revealed normal anal sphincter tone, no masses, and a normal prostate. The flexible Olympus colonoscope was used to intubate the rectum. A view of the colon was developed sequentially to the cecum. Upon insertion and withdrawal, including retroflexion in the rectum, no mucosal lesions were encountered. The scope was removed. The patient tolerated the procedure well and was sent back to outpatient recovery in good condition. The prep was noted to be good.
== END 2024-02-16 09:04 | disposition home or self-care (01) ==
LOC: SDC 06:06
PROVIDERS: ATTEND Family Medicine
DX: R19.4 Change in bowel habit (principal); R14.0 Abdominal distension (gaseous); R63.4 Abnormal weight loss
CPT/HCPCS: 36415; 80048; 83735; 93005; 99100; J2704; A9270-GY

== ENCOUNTER 2024-12-24 09:29 | Day surgery (SDC) | payer MEDICARE, OTHER ==
[2024-12-24] MEDS ORDERED: Lactated Ringers 1,000 ML IV ONE (09:45)
[2024-12-24] MEDS: Lactated Ringers 1,000 ML IV SCH (10:09)
[2024-12-24] MEDS: Ak-Dilate OPHTHALMIC*** 0.71 ML, Cyclogyl 1% OPHTH SOL 0.71 ML, GATIFLOXACIN 0.5% OPHTH... OP SCH (10:10)
[2024-12-24] MEDS: TETRACAINE 0.5% STERI-UNIT SOL OP ONE ×2 (10:10)
[2024-12-24 10:53] LABS: INR 1.15 (0.8-3.0); PROTIME 12.4 SECONDS (9.4-12.5)
[2024-12-24] MEDS ORDERED: Epinephrine Preservative Free 1 MG/ML INTRAOP NR (11:30)
[2024-12-24] MEDS ORDERED: BETADINE 5% OPHTHALMIC 30 ML OP NR (11:30)
[2024-12-24] MEDS ORDERED: DEXMEDETOMIDINE 80 MCG/20ML-NS IV NR (11:30)
[2024-12-24] MEDS ORDERED: TRIAMCINOLONE 15 MG/ML INJ INTRAOP NR (11:30)
[2024-12-24] MEDS ORDERED: VIGAMOX/BSS 0.15% SYR IO NR (11:30)
[2024-12-24] MEDS ORDERED: Zofran 4 MG/2 ML VIAL IV PRN (11:45)
[2024-12-24] MEDS ORDERED: Versed 2 MG/2 ML Injection ONE (12:43)
[2024-12-24] MEDS ORDERED: SUBLIMAZE 100 MCG/2 ML ONE (12:43)
[2024-12-24] MEDS: ACETAZOLAMIDE 250 MG TABLET PO ONE (13:13)
[2024-12-24 13:19] VITALS: PULSE 54
[2024-12-24 13:22] VITALS: BP 177/95; RESP 18; TEMP 97; O2SAT 98
== END 2024-12-24 13:37 | disposition home or self-care (01) ==
LOC: SDC 09:29
PROVIDERS: ATTEND Ophthalmology
DX: H25.812 Combined forms of age-related cataract, left eye (principal); Z79.899 Other long term (current) drug therapy
CPT/HCPCS: 36415; 85610; 93005; C1780; J0171; J2250; J3010; A9270-GY